=== PATIENT | female | born 1960 | race Caucasian/White ===

== ENCOUNTER → 2016-07-15 | Outpatient (CLI) | payer BC ==
[~2016-07-15] MED LIST: ADVIL200 MG PO; CLARITIN 1010 MG/TAB PO; LEXAPRO 10MG10 MG PO; MELATONIN3 M1 PO; MULTIPLE VITAMI1 TA5 PO; NORCO 325 MG-7.1 TAB PO; PERCOCET 325 MG1 TA2 PO; PRILOSEC 20MG20 MG PO
== END ==
LOC: MC.RAD 07:58
DX: Z12.31 Encounter for screening mammogram for malignant neoplasm of breast (principal); D48.62 Neoplasm of uncertain behavior of left breast; Z80.3 Family history of malignant neoplasm of breast

== ENCOUNTER → 2016-07-19 | Outpatient (CLI) | payer BC | LOC: MC.RAD 13:11 | DX: D48.62 Neoplasm of uncertain behavior of left breast (principal); Z80.3 Family history of malignant neoplasm of breast ==

== ENCOUNTER → 2016-07-21 | Outpatient (CLI) | payer BC | LOC: MC.RAD 12:41 | DX: D48.62 Neoplasm of uncertain behavior of left breast (principal) ==

== ENCOUNTER → 2016-08-25 | Outpatient (CLI) | payer BC | LOC: COL.RAD 12:00 | DX: C50.912 Malignant neoplasm of unspecified site of left female breast (principal) | CPT/HCPCS: A9541 ==

== ENCOUNTER 2016-08-26 06:46 | Day surgery (SDC) | payer BC ==
[~2016-08-26] VITALS: Ht 167.6 cm; Wt 109.5 kg
[2016-08-26] VITALS (7 sets, daily range): BP systolic 119–143; BP diastolic 65–78; PULSE 59–89; TEMP 97.5–98.1
[2016-08-26] MEDS ORDERED: PRILOSEC 20MG20 MG PO (08:22)
[2016-08-26] MEDS ORDERED: MULTIPLE VITAMI1 TA5 PO (08:23)
[2016-08-26] MEDS ORDERED: LEXAPRO 10MG10 MG PO (08:23)
[2016-08-26] MEDS ORDERED: MELATONIN3 M1 PO (08:23)
[2016-08-26] MEDS ORDERED: NORCO 325 MG-7.1 TAB PO (13:56)
[2016-10-17] MEDS ORDERED: CLARITIN 1010 MG/TAB PO (09:39)
== END 2016-08-26 16:25 | disposition home or self-care (01) ==
LOC: SDCO 06:46
DX: C50.312 Malignant neoplasm of lower-inner quadrant of left female breast (principal); C91.10 Chronic lymphocytic leukemia of B-cell type not having achieved remission; Z17.0 Estrogen receptor positive status [ER+]; Z80.1 Family history of malignant neoplasm of trachea, bronchus and lung; Z80.3 Family history of malignant neoplasm of breast; K58.9 Irritable bowel syndrome, unspecified; G47.33 Obstructive sleep apnea (adult) (pediatric); K21.9 Gastro-esophageal reflux disease without esophagitis; D64.9 Anemia, unspecified
CPT/HCPCS: J0690; J1100; J1885; J2405; J2704; J2765; J3010; J7120; Q9968

== ENCOUNTER 2016-09-08 07:34 | Day surgery (SDC) | payer BC ==
[~2016-09-08] VITALS: Ht 167.6 cm; Wt 109.9 kg
[~2016-09-08 07:34] MED LIST changes: -ADVIL200 MG PO; -CLARITIN 1010 MG/TAB PO; -PERCOCET 325 MG1 TA2 PO
[2016-09-08 08:13] VITALS: BP 154/83; PULSE 69; TEMP 98.2
[2016-09-08] MEDS ORDERED: ADVIL200 MG PO (08:24)
[2016-09-08] MEDS ORDERED: PERCOCET 325 MG1 TA2 PO (10:20)
[2016-09-08 10:45] VITALS: BP 113/60; PULSE 68; TEMP 97.5
[2016-09-08 11:00] VITALS: BP 125/68; PULSE 65
[2016-09-08 11:15] VITALS: BP 129/69; PULSE 65
[2016-10-17] MEDS ORDERED: CLARITIN 1010 MG/TAB PO (09:39)
== END 2016-09-08 11:44 | disposition home or self-care (01) ==
LOC: SDCO 07:34
DX: C50.312 Malignant neoplasm of lower-inner quadrant of left female breast (principal); C91.10 Chronic lymphocytic leukemia of B-cell type not having achieved remission; K58.9 Irritable bowel syndrome, unspecified; G47.33 Obstructive sleep apnea (adult) (pediatric)
CPT/HCPCS: J0690; J1100; J1885; J2405; J2704; J3010; J7120

== ENCOUNTER 2016-10-22 17:18 | Emergency (ER) | payer BC ==
[~2016-10-22] VITALS: Ht 167.6 cm; Wt 104.5 kg
[~2016-10-22 17:18] MED LIST changes: +ADVIL200 MG PO; +CLARITIN 1010 MG/TAB PO; +PERCOCET 325 MG1 TA2 PO
[2016-10-22 20:20] VITALS: BP 145/70; PULSE 82; TEMP 98.5
[2016-10-22 20:35] LABS: PH 5 (5-8); SQUAMOUS EPITHELIAL 0-2 /hpf; URINE APPEARANCE Hazy; URINE BACTERIA None Seen /hpf; URINE BILIRUBIN Negative (NEGATIVE); URINE BLOOD Negative (NEGATIVE); URINE COLOR Amber; URINE GLUCOSE Negative (NEGATIVE); URINE KETONE Trace (NEGATIVE); URINE WBC 20-50 /hpf
[2016-10-22 20:35] LABS: ADD PATHOLOGY DIFF REVIEW NO; BILIRUBIN,TOTAL 1.1 mg/dL (0.0-1.0); CREATININE, serum 0.68 mg/dL (0.52-1.25); HEMATOCRIT 38.9 % (37.0-47.0); HEMOGLOBIN 12.6 g/dl (12.5-16.0); MEAN CELL VOLUME 84 fl (80.0-100.0); MEAN CORPUSCULAR HEMOGLOBIN 27 pg (27.0-31.0); MEAN CORPUSCULAR HGB CONC 32 g/dl (33.0-37.0); MEAN PLATELET VOLUME 10.6 fl (7.4-10.4); PLATELET COUNT 244 K/mm3 (130-400); POTASSIUM 3.9 mmol/L (3.4-5.0); RED BLOOD COUNT 4.66 M/mm3 (4.10-5.30); REDCELL DISTRIBUTION WIDTH-CV 14.4 % (11.5-14.5); TOTAL PROTEIN 7.1 gm/dL (6.4-8.2); WHITE BLOOD COUNT 12.7 K/mm3 (4.8-10.8)
[2016-10-22 20:36] LABS: BAND 17 % (0-10); BASOPHIL 1 % (0-2); EOSINOPHIL 9 % (0-4); METAMYELOCYTE 2 % (0-0); TOTAL CELLS COUNTED 100
[2016-10-22 20:37] LABS: NEUTROPHILS 63 % (42.0-75.2); PLATELET ESTIMATE NORMAL (NORMAL)
== END 2016-10-22 20:20 | disposition home or self-care (01) ==
LOC: COL.ER 17:18
PROVIDERS: Emergency Medicine
DX: N39.0 Urinary tract infection, site not specified (principal); B96.89 Other specified bacterial agents as the cause of diseases classified elsewhere; K21.9 Gastro-esophageal reflux disease without esophagitis; Z85.3 Personal history of malignant neoplasm of breast; Z90.12 Acquired absence of left breast and nipple; Z90.49 Acquired absence of other specified parts of digestive tract; Z92.21 Personal history of antineoplastic chemotherapy

== ENCOUNTER 2016-12-12 09:00 | Outpatient (RCR) | payer BC ==
[2016-10-17 09:40] VITALS: BP 139/74; PULSE 76; TEMP 98.1
[2016-10-17 10:38] LABS: ADD PATHOLOGY DIFF REVIEW NO
[2016-10-17 10:42] LABS: MEAN CELL VOLUME 86 fl (80.0-100.0); MEAN CORPUSCULAR HGB CONC 31 g/dl (33.0-37.0); MEAN PLATELET VOLUME 10.6 fl (7.4-10.4); PLATELET COUNT 227 K/mm3 (130-400); RED BLOOD COUNT 4.07 M/mm3 (4.10-5.30); REDCELL DISTRIBUTION WIDTH-CV 14.3 % (11.5-14.5); WHITE BLOOD COUNT 14.6 K/mm3 (4.8-10.8)
[2016-10-17 10:44] LABS: HEMATOCRIT 34.9 % (37.0-47.0); HEMOGLOBIN 10.9 g/dl (12.5-16.0); MEAN CORPUSCULAR HEMOGLOBIN 27 pg (27.0-31.0)
[2016-10-17 12:36] LABS: BAND 3 % (0-10); BASOPHIL 2 % (0-2); METAMYELOCYTE 2 % (0-0); NEUTROPHILS 83 % (42.0-75.2); TOTAL CELLS COUNTED 100
[2016-10-18 09:00] VITALS: BP 133/69; PULSE 75
[2016-10-25 09:33] LABS: ADD PATHOLOGY DIFF REVIEW NO
[2016-10-25 09:34] VITALS: BP 123/62; PULSE 98; TEMP 98.4
[2016-10-25 09:45] LABS: MEAN CELL VOLUME 85 fl (80.0-100.0); MEAN CORPUSCULAR HGB CONC 32 g/dl (33.0-37.0); MEAN PLATELET VOLUME 10.8 fl (7.4-10.4); PLATELET COUNT 230 K/mm3 (130-400); RED BLOOD COUNT 4.28 M/mm3 (4.10-5.30); REDCELL DISTRIBUTION WIDTH-CV 14.5 % (11.5-14.5); WHITE BLOOD COUNT 5.6 K/mm3 (4.8-10.8)
[2016-10-25 09:49] LABS: ADJUSTED CALCIUM 9.3 mg/dL (8.4-10.2); ALBUMIN 3.8 gm/dL (3.5-5.0); BILIRUBIN,TOTAL 0.6 mg/dL (0.0-1.0); CALCIUM 9.1 mg/dL (8.4-10.2); CREATININE, serum 0.7 mg/dL (0.52-1.25); TOTAL PROTEIN 6.8 gm/dL (6.4-8.2)
[2016-10-25 09:59] LABS: HEMATOCRIT 36.2 % (37.0-47.0); HEMOGLOBIN 11.5 g/dl (12.5-16.0); MEAN CORPUSCULAR HEMOGLOBIN 27 pg (27.0-31.0)
[2016-10-25 11:13] LABS: BAND 26 % (0-10); EOSINOPHIL 9 % (0-4); MYELOCYTE 4 % (0-0); NEUTROPHILS 13 % (42.0-75.2); TOTAL CELLS COUNTED 100
[2016-10-25 11:14] LABS: ANISOCYTOSIS 1+; HYPOCHROMIA 1+; MICROCYTOSIS 1+; PLATELET ESTIMATE NORMAL (NORMAL)
[2016-10-31 09:26] VITALS: BP 121/73; PULSE 90; TEMP 98.4
[2016-10-31 09:31] LABS: ADD PATHOLOGY DIFF REVIEW NO
[2016-10-31 09:36] LABS: MEAN CELL VOLUME 86 fl (80.0-100.0); MEAN CORPUSCULAR HGB CONC 31 g/dl (33.0-37.0); MEAN PLATELET VOLUME 9.6 fl (7.4-10.4); PLATELET COUNT 149 K/mm3 (130-400); RED BLOOD COUNT 4.25 M/mm3 (4.10-5.30); WHITE BLOOD COUNT 18.9 K/mm3 (4.8-10.8)
[2016-10-31 10:31] LABS: HEMATOCRIT 36.6 % (37.0-47.0); HEMOGLOBIN 11.5 g/dl (12.5-16.0); MEAN CORPUSCULAR HEMOGLOBIN 27 pg (27.0-31.0)
[2016-10-31 12:38] LABS: BAND 38 % (0-10); MYELOCYTE 2 % (0-0); NEUTROPHILS 47 % (42.0-75.2); TOTAL CELLS COUNTED 100
[2016-10-31 12:39] LABS: ANISOCYTOSIS 1+; PLATELET ESTIMATE NORMAL (NORMAL)
[2016-11-07 09:44] VITALS: BP 146/72; PULSE 89; TEMP 98.4
[2016-11-07 09:58] LABS: ADD PATHOLOGY DIFF REVIEW NO
[2016-11-07 10:06] LABS: MEAN CELL VOLUME 87 fl (80.0-100.0); MEAN CORPUSCULAR HGB CONC 32 g/dl (33.0-37.0); MEAN PLATELET VOLUME 10.2 fl (7.4-10.4); PLATELET COUNT 193 K/mm3 (130-400); RED BLOOD COUNT 3.63 M/mm3 (4.10-5.30); REDCELL DISTRIBUTION WIDTH-CV 16.1 % (11.5-14.5); WHITE BLOOD COUNT 11.4 K/mm3 (4.8-10.8)
[2016-11-07 10:11] LABS: HEMATOCRIT 31.4 % (37.0-47.0); HEMOGLOBIN 9.9 g/dl (12.5-16.0); MEAN CORPUSCULAR HEMOGLOBIN 27 pg (27.0-31.0)
[2016-11-07 13:30] LABS: BAND 5 % (0-10); BASOPHIL 1 % (0-2); EOSINOPHIL 1 % (0-4); METAMYELOCYTE 1 % (0-0); NEUTROPHILS 68 % (42.0-75.2); TOTAL CELLS COUNTED 100
[2016-11-07 13:32] LABS: POLYCHROMASIA 1+
[2016-11-07 13:33] LABS: PLATELET ESTIMATE NORMAL (NORMAL); POIKILOCYTOSIS 1+
[2016-11-14 09:44] LABS: ADD PATHOLOGY DIFF REVIEW NO
[2016-11-14 09:49] LABS: MEAN CELL VOLUME 88 fl (80.0-100.0); MEAN CORPUSCULAR HGB CONC 32 g/dl (33.0-37.0); MEAN PLATELET VOLUME 10.5 fl (7.4-10.4); PLATELET COUNT 233 K/mm3 (130-400); RED BLOOD COUNT 3.76 M/mm3 (4.10-5.30); REDCELL DISTRIBUTION WIDTH-CV 16.5 % (11.5-14.5); WHITE BLOOD COUNT 9.6 K/mm3 (4.8-10.8)
[2016-11-14 10:00] LABS: HEMOGLOBIN 10.5 g/dl (12.5-16.0); MEAN CORPUSCULAR HEMOGLOBIN 28 pg (27.0-31.0)
[2016-11-14 10:29] VITALS: BP 140/56; PULSE 77; TEMP 98.1
[2016-11-14 10:43] LABS: BAND 8 % (0-10); EOSINOPHIL 1 % (0-4); NEUTROPHILS 70 % (42.0-75.2); TOTAL CELLS COUNTED 100
[2016-11-14 10:44] LABS: ANISOCYTOSIS 1+; PLATELET ESTIMATE NORMAL (NORMAL)
[2016-11-21 09:15] VITALS: BP 135/76; PULSE 85; TEMP 98.7
[2016-11-21 09:54] LABS: MEAN CELL VOLUME 89 fl (80.0-100.0); MEAN CORPUSCULAR HGB CONC 31 g/dl (33.0-37.0); MEAN PLATELET VOLUME 9.6 fl (7.4-10.4); PLATELET COUNT 200 K/mm3 (130-400); RED BLOOD COUNT 3.58 M/mm3 (4.10-5.30); REDCELL DISTRIBUTION WIDTH-CV 17.8 % (11.5-14.5); WHITE BLOOD COUNT 15.4 K/mm3 (4.8-10.8)
[2016-11-21 09:56] LABS: MEAN CORPUSCULAR HEMOGLOBIN 28 pg (27.0-31.0)
[2016-11-21 10:13] LABS: BAND 23 % (0-10); BASOPHIL 1 % (0-2); EOSINOPHIL 2 % (0-4); METAMYELOCYTE 4 % (0-0); NEUTROPHILS 58 % (42.0-75.2); TOTAL CELLS COUNTED 100
[2016-11-21 10:14] LABS: PLATELET ESTIMATE NORMAL (NORMAL); POLYCHROMASIA 1+
[2016-11-21 10:15] LABS: ADD PATHOLOGY DIFF REVIEW YES
[2016-11-22 08:22] LABS: PATHOLOGY DIFF REVIEW OK
[2016-11-25 12:46] VITALS: BP 138/82; PULSE 90; TEMP 98.6
[2016-11-28 08:48] LABS: ADD PATHOLOGY DIFF REVIEW NO
[2016-11-28 08:50] LABS: HEMATOCRIT 31.1 % (37.0-47.0); HEMOGLOBIN 9.9 g/dl (12.5-16.0); MEAN CELL VOLUME 88 fl (80.0-100.0); MEAN CORPUSCULAR HEMOGLOBIN 28 pg (27.0-31.0); MEAN CORPUSCULAR HGB CONC 32 g/dl (33.0-37.0); MEAN PLATELET VOLUME 10.3 fl (7.4-10.4); PLATELET COUNT 173 K/mm3 (130-400); RED BLOOD COUNT 3.54 M/mm3 (4.10-5.30); REDCELL DISTRIBUTION WIDTH-CV 18.7 % (11.5-14.5); WHITE BLOOD COUNT 9.8 K/mm3 (4.8-10.8)
[2016-11-28 09:00] VITALS: BP 119/59; PULSE 85; TEMP 98.7
[2016-11-28 10:08] LABS: BAND 20 % (0-10); BASOPHIL 3 % (0-2); METAMYELOCYTE 2 % (0-0); MYELOCYTE 2 % (0-0); NEUTROPHILS 63 % (42.0-75.2); TOTAL CELLS COUNTED 100
[2016-11-28 10:09] LABS: ANISOCYTOSIS 2+; HYPOCHROMIA 2+; PLATELET ESTIMATE NORMAL (NORMAL); TEAR DROP CELLS 1+
[2016-11-28 10:49] LABS: ADJUSTED CALCIUM 9.3 mg/dL (8.4-10.2); ALBUMIN 4.1 gm/dL (3.5-5.0); BILIRUBIN,TOTAL 0.6 mg/dL (0.0-1.0); CALCIUM 9.4 mg/dL (8.4-10.2); CREATININE, serum 0.65 mg/dL (0.52-1.25); POTASSIUM 4.1 mmol/L (3.4-5.0); TOTAL PROTEIN 6.9 gm/dL (6.4-8.2)
[2016-12-05 09:54] VITALS: BP 135/72; PULSE 90; TEMP 98.5
[2016-12-05 10:54] LABS: ADD PATHOLOGY DIFF REVIEW NO
[2016-12-05 10:59] LABS: MEAN CELL VOLUME 89 fl (80.0-100.0); MEAN CORPUSCULAR HGB CONC 32 g/dl (33.0-37.0); MEAN PLATELET VOLUME 10.7 fl (7.4-10.4); PLATELET COUNT 178 K/mm3 (130-400); RED BLOOD COUNT 3.58 M/mm3 (4.10-5.30); REDCELL DISTRIBUTION WIDTH-CV 18.1 % (11.5-14.5); WHITE BLOOD COUNT 13.4 K/mm3 (4.8-10.8)
[2016-12-05 11:01] LABS: HEMATOCRIT 31.9 % (37.0-47.0); HEMOGLOBIN 10.3 g/dl (12.5-16.0); MEAN CORPUSCULAR HEMOGLOBIN 29 pg (27.0-31.0)
[2016-12-05 13:31] LABS: BAND 3 % (0-10); EOSINOPHIL 3 % (0-4); NEUTROPHILS 83 % (42.0-75.2); TOTAL CELLS COUNTED 100
[2016-12-05 13:35] LABS: ANISOCYTOSIS 1+; PLATELET ESTIMATE NORMAL (NORMAL); TEAR DROP CELLS 1+
[~2016-12-12] VITALS: Ht 167.6 cm; Wt 105.0 kg
== END 2016-12-12 11:42 | disposition home or self-care (01) ==
LOC: EUO 09:00
PROVIDERS: Internal Medicine Hematology & Oncology; Internal Medicine Medical Oncology
DX: C50.312 Malignant neoplasm of lower-inner quadrant of left female breast (principal)
CPT/HCPCS: C1751; J1644

== ENCOUNTER 2016-12-28 09:00 | Outpatient (RCR) | payer BC | END 2017-01-03 | LOC: MKS.ESL.PT | DX: R59.0 Localized enlarged lymph nodes (principal); C50.312 Malignant neoplasm of lower-inner quadrant of left female breast; Z98.890 Other specified postprocedural states ==

== ENCOUNTER → 2017-02-02 | Outpatient (CLI) | payer BC | LOC: BHSO 13:17 | DX: F41.1 Generalized anxiety disorder (principal) ==

== ENCOUNTER → 2017-05-02 | Outpatient (CLI) | payer BC | LOC: BHSO 13:22 | DX: F41.1 Generalized anxiety disorder (principal) ==

== ENCOUNTER 2017-06-20 12:55 | Day surgery (SDC) | payer BC ==
[~2017-06-20] VITALS: Ht 167.6 cm; Wt 99.6 kg
[~2017-06-20 12:55] MED LIST changes: -LEXAPRO 10MG10 MG PO; +LEXAPRO20 MG PO
[2017-06-20] MEDS ORDERED: TAMOXIFEN CITRA20 MG PO (13:40)
[2017-06-20] MEDS ORDERED: DAILY MULTIPLE1 T19 PO (13:42)
[2017-06-20 13:55] VITALS: BP 147/82; PULSE 77; TEMP 98.6
[2017-06-20 15:05] VITALS: BP 142/77; PULSE 67; TEMP 98.8
[2017-06-20 15:20] VITALS: BP 135/76; PULSE 68
[2017-06-20 15:35] VITALS: BP 128/79; PULSE 74
== END 2017-06-20 15:50 | disposition home or self-care (01) ==
LOC: SDCO 12:55
DX: Z12.11 Encounter for screening for malignant neoplasm of colon (principal); Z83.71 Family history of colonic polyps; Z64.0 Problems related to unwanted pregnancy; K21.9 Gastro-esophageal reflux disease without esophagitis; K58.9 Irritable bowel syndrome, unspecified; Z85.3 Personal history of malignant neoplasm of breast
CPT/HCPCS: OP; J2250; J3010; J7030

== ENCOUNTER → 2017-07-21 | Outpatient (CLI) | payer BC ==
[~2017-07-21] MED LIST changes: +DAILY MULTIPLE1 T19 PO; +TAMOXIFEN CITRA20 MG PO
== END ==
LOC: MC.RAD 10:25
DX: Z85.3 Personal history of malignant neoplasm of breast (principal); Z92.3 Personal history of irradiation; Z98.890 Other specified postprocedural states; I10 Essential (primary) hypertension

== ENCOUNTER 2017-10-30 13:16 | Outpatient (RCR) | payer BC | END 2018-01-28 | disposition home or self-care (01) | LOC: MKS.ESL.PT | DX: I89.0 Lymphedema, not elsewhere classified (principal); C50.912 Malignant neoplasm of unspecified site of left female breast ==

== ENCOUNTER → 2018-02-22 | Outpatient (CLI) | payer BC ==
[2018-02-22 11:23] LABS: BASO # 0.1 (0.0-0.2); BASO % 0.8 % (0.0-2.0); EOS # 0.1 (0.0-0.7); EOS % 1.9 % (0-4.0); GRAN # 4.8 (1.4-6.5); GRAN % 64.3 % (42.2-75.2); HEMATOCRIT 37.4 % (37.0-47.0); HEMOGLOBIN 12.3 g/dl (12.5-16.0); LYMPH # 2.1 (1.2-3.4); LYMPH % 27.4 % (20.0-51.0); MEAN CELL VOLUME 87 fl (80.0-100.0); MEAN CORPUSCULAR HEMOGLOBIN 29 pg (27.0-31.0); MEAN CORPUSCULAR HGB CONC 33 g/dl (33.0-37.0); MEAN PLATELET VOLUME 9.8 fl (7.4-10.4); MONO # 0.4 (0.1-0.6); MONO % 5.2 % (1.7-9.3); PLATELET COUNT 255 K/mm3 (130-400); RED BLOOD COUNT 4.32 M/mm3 (4.10-5.30); REDCELL DISTRIBUTION WIDTH-CV 12.3 % (11.5-14.5)
[2018-02-22 11:27] LABS: ALANINE AMINOTRANSFERASE 29 U/L (9-52); ALKALINE PHOSPHATASE 75 U/L (50-136); ANION GAP 6 mmol/L (7-16); AST,SGOT 72 U/L (15-37); BILIRUBIN,TOTAL 0.4 mg/dL (0.0-1.0); BLOOD UREA NITROGEN 15 mg/dL (7-17); C-REACTIVE PROTEIN 1.2 mg/dL (0.0-0.9); CALCIUM 9.3 mg/dL (8.4-10.2); CARBON DIOXIDE 30 mmol/L (22-30); CHLORIDE 102 mmol/L (98-107); CREATININE, serum 0.66 mg/dL (0.52-1.25); GLUCOSE 108 mg/dL (74-106); POTASSIUM 4.5 mmol/L (3.4-5.0); SODIUM 138 mmol/L (137-145); TOTAL PROTEIN 7.2 gm/dL (6.4-8.2)
[2018-02-22 11:28] LABS: CREATINE KINASE < 20 U/L (30-135)
[2018-02-22 11:40] LABS: ERYTHROCYTE SEDIMENTATION RATE 12 mm/hr (0-30)
== END ==
LOC: COL.LAB 10:38
PROVIDERS: Family Medicine
DX: R53.83 Other fatigue (principal)

== ENCOUNTER → 2018-07-23 | Outpatient (CLI) | payer BC | LOC: MC.RAD 09:15 | DX: Z12.31 Encounter for screening mammogram for malignant neoplasm of breast (principal) ==

== ENCOUNTER → 2019-02-13 | Outpatient (CLI) | payer BC | LOC: MHCPAIN 08:17 | DX: G89.29 Other chronic pain (principal); M47.817 Spondylosis without myelopathy or radiculopathy, lumbosacral region; M54.16 Radiculopathy, lumbar region; M53.3 Sacrococcygeal disorders, not elsewhere classified | CPT/HCPCS: G0463 ==

== ENCOUNTER 2019-05-06 11:15 | Outpatient (RCR) | payer BC | END 2019-05-06 12:26 | disposition home or self-care (01) | LOC: MKS.ESL.PT 11:15 | DX: M47.27 Other spondylosis with radiculopathy, lumbosacral region (principal); M53.3 Sacrococcygeal disorders, not elsewhere classified ==

== ENCOUNTER → 2019-08-01 | Outpatient (CLI) | payer BC | LOC: MC.RAD 08:44 | DX: Z12.31 Encounter for screening mammogram for malignant neoplasm of breast (principal) ==